=== PATIENT | female | born 1950 | race Caucasian/White ===

== ENCOUNTER → 2018-10-06 | Day surgery (SDC) | payer OTHER ==
[2018-10-03 15:47] LABS: BASOPHILS # (AUTO) 0.1 (0.0-0.1); BASOPHILS % 0.7 % (0.0-1.0); EOSINOPHILS # (AUTO) 0.1 (0.0-0.4); EOSINOPHILS % 1.9 % (0.0-6.0); HEMOGLOBIN 12.5 g/dL (12.0-16.0); LYMPHOCYTES # (AUTO) 1.5 (1.0-3.2); LYMPHOCYTES % 22.5 % (18.0-39.1); MEAN CORPUSCULAR HEMOGLOBIN 30.3 pg (28-32); MEAN CORPUSCULAR HGB CONC 32.9 g/dL (31-35); MEAN CORPUSCULAR VOLUME 92.2 fL (81-99); MONOCYTES # (AUTO) 0.6 (0.2-0.8); MONOCYTES % 8.3 % (4.4-11.3); NEUTROPHILS # (AUTO) 4.5 (2.1-6.9); NEUTROPHILS % 66.5 % (38.7-80.0); PLATELET COUNT 195 x10e3/uL (140-360); RED BLOOD COUNT 4.12 x10e6/uL (3.6-5.1); RED CELL DISTRIBUTION WIDTH 12.8 % (11.7-14.4)
[~2018-10-06] MED LIST: ALEVE; ATORVASTATIN CA20 MG PO; DICLOFENAC POTA50 MG PO; FENTANYL CITRATE/PF 100MCG/2 ML INJ ONE; FLECTOR1 EACH; GLUCAGON FOR INJ 1 MG VIAL ONE; HYOSCYAMINE SULFATE 0.5 MG/ML INJ ONE; MIDAZOLAM HCL 2 MG/2 ML VIAL ONE; PRISTIQ50 MG PO; RAMIPRIL5 MG PO; Z.0.ESTRADIOL0.5 MG PO; Z.0.LIPITOR20 MG PO
--- OUTSIDE RECORDS SUMMARY | 2018-10-06 13:27 | XMS REPORT ---
Author Author [facility] Address Unknown Phone Unavailable Care Team Providers Care Crane Assembler Name Role Phone Unavailable Unavailable Problems This patient has no known problems. Allergies, Adverse Reactions, Alerts This patient has no known allergies or adverse reactions. Medications This patient has no known medications. Results Test Description Test Time Test Comments Text Results Atomic Results Result Comments SCR MAMM BILATERAL DARWIN CAD DIGITAL 2018-09-26 14:53:47 - SCR MAMM BILATERAL DARWIN CAD DIGITALBILATERAL DIGITAL SCREENING MAMMOGRAM 3D/2D WITH CAD: 09/26/2018CLINICAL: Asymptomatic. Digital breast tomosynthesis was performed in addition to routine CC and MLO views. Current mammographic images were evaluated by either a [employer] M-Vu or a [employer] ImageChecker CAD (computer aided detection system). Comparison is made to exams dated 08/21/2017 mammogram, mammogram, and 06/19/2014 mammogram - [facility]. The tissue of both breasts is predominantly fatty. No suspicious mass, architectural distortion, malignant type calcification, or lymph node abnormality detected. Breast architecture is stable compared to prior exams.IMPRESSION: NEGATIVEThere is no mammographic evidence of malignancy. Resume annual screening mammography in one year. Luis Felipe Israel M.D. qn/penrad:09/26/2018 14:53:47 copy to: Tanner Romano M.D., ph: [phone], fax: [phone] Technologist: Brittnee SMITH, [facility] sent: BIRADS 1-2 Normal Mammogram BI-RADS: 1 Negative
[2018-10-06 15:50] LABS: WBC,FECAL (FECAL LACTOFERRIN) NEGATIVE (NEGATIVE)
[2018-10-06 16:00] VITALS: BP 103/60
--- NOTE | 2018-10-06 16:07 | Operative Report ---
DATE OF PROCEDURE: October 06, 2018 REFERRING PHYSICIAN: Dr. Prateek Jackson. PROCEDURE PERFORMED: Colonoscopy on and polypectomy with biopsies. INDICATIONS FOR COLONOSCOPY: Surveillance colonoscopy, personal history of colon polyps, and chronic diarrhea. MEDICATION: Patient was done under MAC. Please see anesthesiologist's note PROCEDURE: With patient in the left lateral decubitus position, flexible fiberoptic Olympus colonoscope was inserted into the rectum with ease and advanced all the way to the cecum. Mucosa overlying the cecum revealed some patchy areas of erythema. The ileocecal valve was intubated and the scope was advanced into the terminal ileum. Biopsies were obtained. The scope was then withdrawn back into the colon. It was then withdrawn slowly and some mild patchy inflammatory changes were noted throughout the colon and random biopsies were obtained. One polyp was snared from the transverse colon and 7 polyps were hot biopsied from the sigmoid colon. Some diverticular disease was noted in the sigmoid colon. Similar inflammatory findings were noted in the rectum and biopsies were obtained. One polyp in the rectum was hot biopsied. The scope was then retroflexed into the distal rectum and small internal hemorrhoids were noted, none of which was actively bleeding. The scope was then straightened out and it was subsequently withdrawn after securing an adequate stool specimen that was sent for the appropriate stool studies. Patient tolerated the procedure well. IMPRESSION: 1. Mild patchy colitis. 2. Transverse colon polyp, snared. 3. Sigmoid colon polyps times 7, hot biopsied. 4. Diverticulosis. 5. Proctitis, mild. 6. Rectal polyp times 1, hot biopsied. 7. Internal hemorrhoids, none actively bleeding. PLAN: Follow up histology. Follow up stool studies. Initiate Bentyl 10 20 mg 1 p.o. t.i.d. and Colestid 1 gram p.o. daily. Patient might benefit from a followup colonoscopy in 3 years. Job#: [id number] GH cc:PRATEEK JACKSON MD
[2018-10-07 14:33] LABS: C DIFFICILE TOXIN A&B AMP PROB NEGATIVE (NEGATIVE)
== END | disposition home or self-care (01) ==
LOC: OR 13:25
PROVIDERS: ATTEND Internal Medicine Gastroenterology
DX: K52.9 Noninfective gastroenteritis and colitis, unspecified (principal); K63.5 Polyp of colon; K62.1 Rectal polyp; K57.30 Diverticulosis of large intestine without perforation or abscess without bleeding; K62.89 Other specified diseases of anus and rectum; L29.0 Pruritus ani; K64.8 Other hemorrhoids; G47.33 Obstructive sleep apnea (adult) (pediatric); I10 Essential (primary) hypertension; H91.90 Unspecified hearing loss, unspecified ear; I34.1 Nonrheumatic mitral (valve) prolapse; D64.9 Anemia, unspecified; E78.5 Hyperlipidemia, unspecified; F32.9 Major depressive disorder, single episode, unspecified; F41.9 Anxiety disorder, unspecified; Z01.810 Encounter for preprocedural cardiovascular examination; Z01.812 Encounter for preprocedural laboratory examination; Z68.35 Body mass index [BMI] 35.0-35.9, adult
CPT/HCPCS: 36415; 45380; 45384; 45385; 83630; 83993; 85025; 87045; 87177; 87328; 87493; 93005; J1610; J1980; J2250; 45378